=== PATIENT | male | born 1955 | race Caucasian/White ===

== ENCOUNTER → 2025-08-14 | Outpatient (CLI) | payer MEDICARE, OTHER ==
[~2025-08-14] MED LIST: LISI20TA35 PO; METO200T15 PO; OMEP40CA4 PO; PROHANCE 279.3MG/ML 15ML VIAL ONE; PROHANCE 279.3MG/ML 5ML VIAL ONE; SERT-141 PO; TRAZ-252 PO
== END ==
LOC: M PLAIMG 11:10 → EDUNIT# 12:15
PROVIDERS: ATTEND Student in an Organized Health Care Education/Training Program
DX: C71.3 Malignant neoplasm of parietal lobe (principal)
CPT/HCPCS: 70553; A9579